=== PATIENT | male | born 1950 | race Caucasian/White ===

== ENCOUNTER 2023-07-27 22:29 | Observation (INO) | payer MEDICARE, OTHER ==
[2023-07-27] MEDS ORDERED: Aspirin Chewable 81 MG TAB ONE (23:00)
[2023-07-27] MEDS ORDERED: diphenhydrAMINE 50 MG/ML VIAL ONE (23:00)
[2023-07-27] MEDS ORDERED: Morphine 4 MG/ML VIAL ONE (23:00)
[2023-07-27 23:04] LABS: #Basophils 0.02 10x3/uL (0.0-0.2); #Eosinphils 0.14 10x3/uL (0.0-0.5); #Monocytes 0.87 10x3/uL (0.0-1.1); #Neutrophils 4.03 10x3/uL (1.5-8.4); %Basophils 0.3 % (0.0-2.0); %Lymphocytes 26.4 % (18.0-47.0); %Monocytes 12.6 % (0.0-10.0); %Neutrophils 58.1 % (40.0-75.0); Hematocrit 38.2 % (38.8-50.0); Hemoglobin 13.1 g/dL (13.5-17.5); Mean Corpuscular HGB CONC 34.3 g/dL (32.0-36.0); Mean Corpuscular Hemoglobin 32.1 pg (27.0-33.0); Mean Corpuscular Volume 93.6 fl (81.2-95.1); Mean Platelet Volume 11.6 fl (7.4-10.4); Platelet Count 107 10x3/uL (150-450); RBC Distribution Width 12.7 % (11.5-14.5); Red Blood Cell (RBC) Count 4.08 10x6/uL (4.32-5.72); White Blood Cell (WBC) Count 6.9 10x3/uL (3.5-10.5)
[2023-07-27 23:17] LABS: ALT (SGPT) 26 U/L (8-55); AST (SGOT) 22 U/L (5-34); Albumin 4.1 g/dL (3.4-4.8); Alkaline Phosphatase 73 U/L (40-110); Anion Gap 12 mmol/L (10-20); BUN (Urea Nitrogen) 14 mg/dL (8.4-25.7); Bilirubin, Total 0.6 mg/dL (0.2-1.2); Calc. Creatinine Clearance 0 mL/min (70-130); Calcium 8.6 mg/dL (7.8-10.44); Carbon Dioxide 23 mmol/L (23-31); Chloride 106 mmol/L (98-107); Estimated GFR 89; Globulin 2.6 g/dL (2.4-3.5); Glucose 94 mg/dL (80-115); Lipase 26 U/L (8-78); Potassium 3.9 mmol/L (3.5-5.1); Protein, Total 6.7 g/dL (5.8-8.1); Sodium 137 mmol/L (136-145)
[2023-07-27 23:22] LABS: Troponin I 0.049 ng/mL (< 0.028)
[2023-07-27] MEDS ORDERED: Enoxaparin 100 MG (1 mL) SYRINGE ONE (23:33)
[2023-07-28] MEDS ORDERED: Nitroglycerin 0.4 MG TAB (25 Tab Bottle) SL PRN (02:25)
[2023-07-28 02:44] LABS: Troponin I 0.046 ng/mL (< 0.028)
[2023-07-28 07:45] LABS: #Basophils 0.04 10x3/uL (0.0-0.2); #Eosinphils 0.17 10x3/uL (0.0-0.5); #Monocytes 0.69 10x3/uL (0.0-1.1); %Basophils 0.8 % (0.0-2.0); %Eosinophils 3.2 % (0.0-6.0); %Lymphocytes 38.6 % (18.0-47.0); %Monocytes 13.1 % (0.0-10.0); %Neutrophils 43.5 % (40.0-75.0); Hematocrit 39.4 % (38.8-50.0); Hemoglobin 13.4 g/dL (13.5-17.5); Mean Corpuscular Hemoglobin 32.5 pg (27.0-33.0); Mean Corpuscular Volume 95.6 fl (81.2-95.1); Mean Platelet Volume 11.7 fl (7.4-10.4); Platelet Count 112 10x3/uL (150-450); RBC Distribution Width 12.8 % (11.5-14.5); Red Blood Cell (RBC) Count 4.12 10x6/uL (4.32-5.72); White Blood Cell (WBC) Count 5.3 10x3/uL (3.5-10.5)
[2023-07-28 07:54] VITALS: BMI 27.1
[2023-07-28 08:07] LABS: Magnesium 2.2 mg/dL (1.6-2.6)
[2023-07-28 08:16] LABS: Troponin I 0.055 ng/mL (< 0.028)
[2023-07-28] MEDS: Carvedilol 6.25 MG TAB PO SCH (09:08)
[2023-07-28] MEDS: Hydrochlorothiazide 25 MG TAB PO SCH (09:09)
[2023-07-28] MEDS: Losartan 50 MG TAB PO SCH (09:09)
[2023-07-28] MEDS: Aspirin Chewable 81 MG TAB PO SCH (09:09)
[2023-07-28] MEDS: Amlodipine 5 MG TAB PO SCH (09:10)
[2023-07-28 12:12] VITALS: BP 129/82; TEMP 97.8
[2023-07-28] MEDS ORDERED: Rosuvastatin 10 MG TAB PO SCH (21:00)
[2023-07-28] MEDS ORDERED: Enoxaparin 40 MG (0.4 mL) SYRINGE SC SCH (21:00)
== END 2023-07-28 15:58 | disposition home or self-care (01) ==
LOC: CSHERS 22:29 → CSHTELE 23:45
PROVIDERS: ADMIT Family Medicine; ATTEND Internal Medicine
PROC: B246YZZ Ultrasonography of Right and Left Heart using Other Contrast (ICD-10-PCS; principal; 2023-07-27)
DX: R07.2 Precordial pain (principal); I12.9 Hypertensive chronic kidney disease with stage 1 through stage 4 chronic kidney disease, or unspecified chronic kidney disease; N18.2 Chronic kidney disease, stage 2 (mild); D63.1 Anemia in chronic kidney disease; D53.9 Nutritional anemia, unspecified; E78.5 Hyperlipidemia, unspecified; N40.0 Benign prostatic hyperplasia without lower urinary tract symptoms; D69.6 Thrombocytopenia, unspecified; K44.9 Diaphragmatic hernia without obstruction or gangrene; Z87.891 Personal history of nicotine dependence; Z98.890 Other specified postprocedural states; Z79.899 Other long term (current) drug therapy; Z79.82 Long term (current) use of aspirin
CPT/HCPCS: 71045; 80053; 83690; 83735; 84484 ×3; 85025 ×2; 85379; 93005 ×2; 93306; 96372; 96374; 96375; 99285; G0378 ×2; 36415; 93010; J1200; J1650; J2270